=== PATIENT | male | born 1945 | race Caucasian/White ===

== ENCOUNTER → 2016-05-22 | Outpatient (CLI) | payer MEDICARE ==
--- OUTSIDE RECORDS SUMMARY | 2016-05-22 13:40 | XMS REPORT | Continuity of Care Document ---
Author Author [facility] Organization [facility] Address Unknown Phone Unavailable Allergies Medications Problems Procedures Results Encounters ACCT No. Visit Date/Time Discharge Status Pt. Type Provider Facility Loc./Unit Complaint [id number] 11/12/2012 08:11:00 2012 23:59:59 CLS Outpatient [id number] 09/20/2012 08:18:00 2012 23:59:59 CLS Outpatient [id number] 08/09/2012 07:46:00 2012 23:59:59 CLS Outpatient
--- NOTE | 2016-05-22 18:40 | Diagnostic Imaging Report ---
PA and lateral chest at 2:01 p.m. INDICATION: Cough. There are no prior studies available for comparison. FINDINGS: The heart size is at the upper limits of normal or slightly enlarged. There are sternotomy wires and surgical clips evident consistent with prior coronary artery bypass procedure. The lungs are generally clear. There is no evidence for failure, pneumonia or for pleural effusion to suggest an acute abnormality. The mediastinum is not widened. The osseous structures are intact. IMPRESSION: There is borderline cardiomegaly and evidence of prior cardiac surgery but there is no sign of an acute cardiopulmonary abnormality. Dictated by: Dictated on workstation # [id number]
== END ==
LOC: RAD 13:36
PROVIDERS: ATTEND Internal Medicine
DX: R05 Cough (principal)
CPT/HCPCS: 71020

== ENCOUNTER → 2017-07-12 | Outpatient (CLI) | payer MEDICARE ==
--- NOTE | 2017-07-12 14:26 | Diagnostic Imaging Report ---
EXAMINATION: Right shoulder at 11:40 a.m. INDICATION: Shoulder pain. Three views were obtained. FINDINGS: There is no fracture, dislocation, or acute bony abnormality evident. There is at least moderate degenerative disease of the glenohumeral joint and fairly severe degenerative changes involving the acromioclavicular joint. These findings are similar to the prior chest exam of 05/22/2016. The soft tissues are unremarkable. IMPRESSION: 1. There is no evidence for an acute bony abnormality. 2. 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 If there is clinical concern regarding an injury to the rotator cuff, then a conventional arthrogram would be recommended. The patient does have a pacemaker in place, and this would preclude further evaluation by MRI. Dictated by: Dictated on workstation # [id number]
== END ==
LOC: RAD 10:57
PROVIDERS: ATTEND Nurse Practitioner
DX: M19.011 Primary osteoarthritis, right shoulder (principal); W19.XXXA Unspecified fall, initial encounter
CPT/HCPCS: 73030

== ENCOUNTER → 2018-12-24 | Outpatient (CLI) | payer MEDICARE ==
--- NOTE | 2018-12-24 14:46 | Diagnostic Imaging Report ---
EXAMINATION: Lumbar spine at 2:30 p.m. INDICATION: Back pain. AP, lateral, and spot lateral views were obtained. There are no prior studies available for comparison. FINDINGS: The lateral view does show straightening of the lumbar spine. This may be secondary to muscle spasm and/or positioning. There is diffuse degenerative disc and bony disease throughout the lumbar spine. This includes disc space narrowing at every level including near-complete obliteration of the disc space at L4-L5 and severe narrowing of the disc space at L3-L4. There are also bridging osteophytes bilaterally at L1-L2, L2-L3, and L3-L4. There is no fracture or acute bony abnormality evident. There is no sign of a paraspinal mass. There is moderate symmetrical sclerosis of the sacroiliac joints. IMPRESSION: 1. There is no evidence for an acute bony abnormality. 2. There is severe degenerative disc and bony disease throughout the lumbar spine. 3. If there is clinical concern regarding spinal stenosis or nerve root encroachment, then CT would be recommended. The patient does have a pacemaker in place, and this would preclude further evaluation by MRI. Dictated by: Dictated on workstation # [id number]
== END ==
LOC: RAD 14:12
PROVIDERS: ATTEND Chiropractor
DX: M47.816 Spondylosis without myelopathy or radiculopathy, lumbar region (principal); M51.36 Other intervertebral disc degeneration, lumbar region; M99.04 Segmental and somatic dysfunction of sacral region; M99.03 Segmental and somatic dysfunction of lumbar region; M99.02 Segmental and somatic dysfunction of thoracic region; M99.01 Segmental and somatic dysfunction of cervical region; M79.10 Myalgia, unspecified site
CPT/HCPCS: 72100

== ENCOUNTER 2021-07-22 18:26 | Emergency (ER) | payer MEDICARE ==
[~2021-07-22] VITALS: Ht 167 cm; Wt 72.0 kg
--- NOTE | 2021-07-22 19:59 | ED Lower Extremity ---
General Chief Complaint: Cardiac/General Problems Stated Complaint: R LOWER LEG PAIN Nursing Triage Note: PATIENT VERBALZIEDHE INJURED HIS FOOT LAST SUNDAY. WAS HIT IN LEG BY FAN CORD, ON SUNDAY HIS DR TOLD HIM TO STOP USING ICE AND APPLY HEAT. THE BRUISING IS WORSE, AND ITS HURTING MORE. TYLENOL HELPS A LITTLE Source: patient, other Exam Limitations: no limitations History of Present Illness Date Seen by Provider: July 22, 2021 Time Seen by Provider: 19:40 Initial Comments The patient presents to the ER by private conveyance from home with his significant other chief complaint that 1 week ago a box fan weighing approximately 20 to 25 pounds fell off the back of a truck and landed on his right ferreira. He is on warfarin. He had a history of atrial fibrillation, pacemaker and CABG 20 years ago. He says he does not take NOACs because of the cost. His last INR was normal. He is not having any fevers or chills and he was able to go out and mow the grass with a push mower immediately after he got hit. He is continue to have a little swelling, pain and settling of bruising down around his foot. He has not had imaging of his right lower extremity since the fan hit him. He does use Tylenol and ice for pain and started using heat but he felt that heat made it hurt worse. Allergies and Home Medications Allergies Coded Allergies: No Known Drug Allergies (Unverified , 05/18/10) Patient Home Medication List Home Medication List Reviewed: Yes Review of Systems Constitutional: No chills, No diaphoresis EENTM: No ear discharge, No ear pain Respiratory: No cough, No short of breath Cardiovascular: No chest pain, No edema Gastrointestinal: No abdominal pain, No nausea, No vomiting Genitourinary: No discharge, No dysuria Musculoskeletal: No back pain, No joint pain Skin: see HPI All Other Systems Reviewed Negative Unless Noted: Yes Past Huxhorb-Pevodh-Qmvfpv Hx Patient Social History Tobacco Use?: No Use of E-Cig and/or Vaping dev: No Substance use?: No Alcohol Use?: No Pt feels they are or have been: No Immunizations Up To Date Influenza Vaccine Up-to-Date: Yes; Up-to-Date First/Initial COVID19 Vaccinat: MAY 2020 Second COVID19 Vaccination Edmundo: JUNE 2020 Third COVID19 Vaccination Date: JUNE 2021 Physical Exam Vital Signs Vital Signs - First Documented 07/22/21 19:17 Temp 36.8 Pulse 63 Resp 18 B/P (MAP) 195/91 (125) Pulse Ox 96 O2 Delivery Room Air Capillary Refill : Less Than 3 Seconds Height, Weight, BMI Height: '" Weight: lbs. oz. kg; 25.00 BMI Method: General Appearance: WD/WN, no apparent distress HEENT: PERRL/EOMI, pharynx normal Cardiovascular: normal peripheral pulses, regular rate, rhythm Respiratory: no respiratory distress, no accessory muscle use Legs: left leg non-tender, left leg normal inspection; bilateral leg normal range of motion; left leg no evidence of injury; right leg ecchymosis (Mid tibia anterior ecchymoses settling down to the level of the ankle bilaterally), right leg nodules (4 cm x 2 cm smooth, hematoma anterior mid tibia without broken s kin), right leg pain, right leg swelling (Mild) Knees: right knee non-tender, right knee normal inspection, right knee normal range of motion, right knee no evidence of injury Ankles: right ankle non-tender, right ankle normal inspection, right ankle normal range of motion, right ankle no evidence of injury Feet: right foot non-tender, right foot normal inspection, right foot normal range of motion, right foot no evidence of injury Neurologic/Tendon: normal sensation, normal motor functions, normal tendon functions, responds to pain, no evidence tendon injury Skin: warm/dry, ecchymosis Progress/Results/Core Measures Results/Orders Vital Signs/I&O 07/22/21 19:17 Temp 36.8 Pulse 63 Resp 18 B/P (MAP) 195/91 (125) Pulse Ox 96 O2 Delivery Room Air Blood Pressure Mean: 125 Progress Progress Note : Time: 19:58 Progress Note He has a hematoma and being on warfarin seems unlikely he would have a DVT. There is no evidence of infection. We did warn him against what to look for for infection as this is a common sequelae of hematoma. He has good range of motion and is able to walk on it. He can wrap it with an Drew wrap and instructed to c ontinue to use Tylenol and that it will get better with time. Return precautions are given. We did offer to do an x-ray of the underlying bones which he declined twice. Since he is able to walk on it I agree that it is low risk for fracture. Departure Impression Primary Impression: Contusion of right lower leg, initial encounter Additional Impression: Hematoma of right lower leg Disposition: HOME, SELF-CARE Condition: Stable Departure-Patient Inst. Decision time for Depature: 19:59 Referrals: KRISTAL BERNARDO MD (PCP/Family) Primary Care Physician Patient Instructions: Contusion (DC), HEMATOMA Add. Discharge Instructions: Typically these hematomas will clear in 2 to 4 weeks and the bruising will disappear with them. Since you are on Coumadin however it may take upwards of twice as long for all of the skin staining, bruising and swelling to disappear. Wrap your leg with an Drew wrap while you are up and out to give gentle compression until the swelling goes away. Monitor your leg several times a day for any signs of infection such as redness going up your leg, heat, increasing pain, fevers especially above 100.3 Fahrenheit, and/or nausea with vomiting. If you see signs of infection then you need to see your doctor or return to the ER to be examined. You may call your insurance company and discuss your [id number]-gymxmv cost for NOACs which are alternative blood thinners to warfarin. While they may cost more the advantages that they fewer interactions with other medications and foods and do not require routine monitoring. All discharge instructions reviewed with patient and/or family. Voiced understanding. FATOU CHRISTIANSON July 22, 2021 19:59
[2021-07-22 20:08] VITALS: BP 195/91
== END 2021-07-22 20:09 | disposition home or self-care (01) ==
LOC: EDUNIT# 18:26 → ER 18:28
DX: S80.11XA Contusion of right lower leg, initial encounter (principal); T45.516A Underdosing of anticoagulants, initial encounter; I48.91 Unspecified atrial fibrillation; Z91.120 Patient's intentional underdosing of medication regimen due to financial hardship; Z95.1 Presence of aortocoronary bypass graft; Z79.01 Long term (current) use of anticoagulants; W20.8XXA Other cause of strike by thrown, projected or falling object, initial encounter
CPT/HCPCS: 99283

== ENCOUNTER → 2022-05-23 | Outpatient (CLI) | payer MEDICARE ==
[~2022-05-23] MED LIST: RT-ALBUTEROL SULF 2.5 MG/3 ML PRE-MIX VIAL INH ONE
--- NOTE | 2022-05-23 09:02 | Diagnostic Imaging Report ---
EXAMINATION: Chest 2 view HISTORY: Short of breath COMPARISON: 05/22/2016 FINDINGS: Left subclavian pacemaker is present. Median sternotomy wires are aligned. There are coronary artery bypass graft markers. Heart is mildly enlarged. No pleural effusion or pneumothorax. No edema or pneumonia. IMPRESSION: 1. Clear lungs. Dictated by: Dictated on workstation # [id number]
== END ==
LOC: RT 08:39
PROVIDERS: ATTEND Internal Medicine
DX: R06.00 Dyspnea, unspecified (principal); R06.02 Shortness of breath; Z87.891 Personal history of nicotine dependence
CPT/HCPCS: 71046; 94060; 94726; 94729

== ENCOUNTER → 2022-06-12 | Outpatient (CLI) | payer MEDICARE | LOC: CARD 11:19 | PROVIDERS: ATTEND Nurse Practitioner Family | DX: I34.0 Nonrheumatic mitral (valve) insufficiency (principal); I51.7 Cardiomegaly; I51.89 Other ill-defined heart diseases; Z95.0 Presence of cardiac pacemaker | CPT/HCPCS: 93306 ==

== ENCOUNTER → 2022-08-16 | Outpatient (RCR) | payer MEDICARE | END | disposition home or self-care (01) | LOC: CR 07-21 09:39 | PROVIDERS: ATTEND Internal Medicine Interventional Cardiology | DX: Z29.8 Encounter for other specified prophylactic measures (principal); Z95.5 Presence of coronary angioplasty implant and graft | CPT/HCPCS: 93798 ==

== ENCOUNTER 2022-09-01 08:43 | Outpatient (RCR) | payer MEDICARE | END 2022-09-15 | disposition home or self-care (01) | LOC: CR 08:43 | PROVIDERS: ATTEND Internal Medicine Interventional Cardiology | DX: Z29.8 Encounter for other specified prophylactic measures (principal) | CPT/HCPCS: 93798 ==